=== PATIENT | male | born 1975 | race Caucasian/White ===

== ENCOUNTER → 2019-05-24 07:47 | Outpatient (CLI) | payer OTHER, SELFPAY ==
--- NOTE | 2019-05-24 | DI.ECHO.S_ITS ---
[facility] +---------+ : : [address] : [place] : : : : [id number] : : : : Phone: [phone]+ Echocardiogram Report + + :Name: INNA PAIGE Study Date: 05/24/2019 Height: 75 in : :[facility] Weight: 300 lb : : Gender: Male BSA: 2.6 m2 : :: 1975 Age: 43 yrs BP: 124/85 mmHg: :Reason For Study: PALPITATION : : Performed By: Khai Anaya : :Referring: KYAW BEE : + + Interpretation Summary The left ventricle is normal in size. The ejection fraction is estimated to be 60-65%. The right ventricle is mildly dilated. The right ventricular systolic function is normal. No significant valvular pathology seen. The ascending aorta is mildly enlarged. Procedure: A two-dimensional transthoracic echocardiogram with color flow and Doppler was performed. The study quality was technically adequate. There is no prior echocardiogram noted for this patient. The patient was in normal sinus rhythm during the exam. Left Ventricle: The left ventricle is normal in size. Proximal septal thickening is noted. There is no echo evidence for significant left ventricular outflow tract obstruction. There is no thrombus. The ejection fraction is estimated to be 60-65%. There are no focal wall motion abnormalities. Diastolic parameters suggest probable normal left ventricular diastolic function and normal filling pressures. Right Ventricle: The right ventricle is mildly dilated. The right ventricular systolic function is normal. Atria: The left atrium is moderately dilated. Right atrial size is normal. The interatrial septum is intact with no evidence for an atrial septal defect. Mitral Valve: The mitral valve is normal in structure and function. There is trace mitral regurgitation. Aortic Valve: The aortic valve is trileaflet. The aortic valve opens well. No aortic regurgitation is present. Tricuspid Valve: The tricuspid valve is normal in structure and function. There is trace tricuspid regurgitation. The right ventricular systolic pressure is estimated to be at least 22 mmHg based on an estimated right atrial pressure of 3 mm Hg. Pulmonic Valve: The pulmonic valve is normal in structure and function. There is no pulmonic valvular regurgitation. Great Vessels: The aortic root is normal size. The ascending aorta is mildly enlarged. The pulmonary artery is normal size. The IVC is of normal diameter and collapses greater than 50% with a sniff. This suggests a low right atrial pressure of 3 mm Hg. Pericardium/ Pleura There is no pericardial effusion. There is no pleural effusion. MMode/2D Measurements & Calculations LVIDd: 4.8 cm LVOT diam: 2.6 cm LVIDs: 2.5 cm Ao root diam: 3.5 cm FS: 46.5 % Aortic Jxn: 3.2 cm EPSS: 0.11 cm asc Aorta Diam: 3.8 cm IVSd: 0.81 cm Ao Arch Diam (Prox Trans): 3.3 cm LVPWd: 0.91 cm LV vasquez. diameter/BSA (cm/m^2): 1.8 LV sys. diameter/BSA (cm/m^2): 0.98 LA dimension: 4.5 cm RA long axis: 5.5 cm LA A2 area: 29.5 cm2 RA area: 20.8 cm2 LA A4 area: 27.0 cm2 RA vol: 66.4 ml LA length (vol): 5.9 cm RA : 25.5 ml/m2 LA vol: 114.8 ml IVC diam: 1.8 cm LA vol index: 44.0 ml/m2 RVD1 (basal): 4.1 cm RVD2 (mid): 4.6 cm Doppler Measurements & Calculations Ao V2 max: 175.3 cm/sec LVOT Max Mateo: 147.1 cm/sec Ao V2 mean: 131.3 cm/sec LV V1 max P.7 mmHg Ao max P.3 mmHg LV V1 VTI: 29.6 cm Ao mean P.3 mmHg AYE(I,D): 4.1 cm2 Ao V2 VTI: 36.9 cm AYE(V,D): 4.3 cm2 sev ratio: 0.80 AYE indexed to BSA (cm^2/m^2): 1.6 MV E max mateo: 70.3 cm/sec TR max mateo: 220.5 cm/sec MV A max mateo: 50.7 cm/sec TR max P.4 mmHg MV E/A: 1.4 PA V2 max: 98.6 cm/sec Med Peak E' Mateo: 8.2 cm/sec PA V2 mean: 67.9 cm/sec E/E' med: 8.6 PA mean P.1 mmHg Lat Peak E' Mateo: 18.5 cm/sec PA pr(Accel): 9.1 mmHg E/E' lat: 3.8 PA Accel Time: 0.14 sec E/e' average: 6.2 MV dec time: 0.16 sec SV(LVOT): 151.9 ml Reading Physician:01:46 PM
== END ==
PROVIDERS: Visit Provider Physician Assistant
DX: R00.2 Palpitations (principal)
CPT/HCPCS: 93306